=== PATIENT | female | born 2000 | race Caucasian/White ===

== ENCOUNTER 2024-08-30 20:18 | Emergency (ER) | payer OTHER ==
[~2024-08-30] VITALS: Ht 165.1 cm; Wt 142.9 kg
[~2024-08-30 20:18] MED LIST: DURICEF250 MG/5 M PO
[2024-08-30 20:28] VITALS: BP 138/64
[2024-08-30 21:13] LABS: BASO % 0.2 % (0.0-1.0); EOS % 0.1 % (1.0-4.0); HEMATOCRIT 43.6 % (37.0-47.0); MEAN CELL VOLUME 85.5 fl (81.0-99.0); MEAN CORPUSCULAR HGB 27.3 pg (27.0-31.0); MEAN CORPUSCULAR HGB CONC 31.9 g/dl (33.0-37.0); MEAN PLATELET VOLUME 9.8 fl (9.6-12.3); MONO # 0.5 10*3/uL (0.1-1.0); MONO % 5.1 % (3.0-9.0); NEUT # 7.7 10*3/uL (2.3-7.9); NEUT % 82.8 % (47.0-73.0); PLATELET COUNT AUTOMATED 307 10*3/uL (130-400); RED CELL DISTRI WIDTH 13.2 % (0-14.5); WHITE BLOOD COUNT 9.3 10*3/uL (4.8-10.8)
[2024-08-30] MEDS ORDERED: methylPREDNISolone sod succ 125 MG VIAL IM ONE (21:50)
== END 2024-08-30 22:10 | disposition home or self-care (01) ==
LOC: ED 20:18
PROVIDERS: Internal Medicine
DX: J02.9 Acute pharyngitis, unspecified (principal); R00.0 Tachycardia, unspecified